=== PATIENT | female | born 1955 | race Caucasian/White ===

== ENCOUNTER 2017-04-02 07:27 | Inpatient (IN) | payer BC ==
[~2017-04-02] VITALS: Ht 162.6 cm; Wt 75.3 kg
[~2017-04-02 07:27] MED LIST: ATACAND32 MG PO; PHILLIPS' COLO1 EACH PO; PHILLIPS500 MG PO; PREVACID15 M1 PO
[2017-04-02] MEDS ORDERED: ROPIVACAINE 246.25 MG, EPINEPHRINE HCL 1:1000 0.5 MG, CLONIDINE HCL 0.08 MG, KETOROLAC ... INJ ONE ×5 (07:30)
[2017-04-02] MEDS ORDERED: GABAPENTIN 300 MG CAP ONE (07:31)
[2017-04-02] MEDS ORDERED: CELECOXIB 200 MG CAP ONE (07:31)
[2017-04-02] MEDS ORDERED: CEFAZOLIN SOD 2 GM/D5W 50ML 50 ML IV ONE (07:32)
[2017-04-02] MEDS ORDERED: DEXAMETHASONE SOD PHOS 10 MG/1 ML VIAL ONE (07:33)
[2017-04-02] MEDS ORDERED: BUPIVACAINE 7.5MG/ML /DEXTROSE 82.5MG/ML 2 ML AMP INJ ONE (08:08)
[2017-04-02] MEDS ORDERED: BACITRACIN 50,000 UNIT VIAL ONE (08:41)
[2017-04-02] MEDS ORDERED: TRANEXAMIC ACID 1,000 MG/10 ML ML ONE (08:41)
[2017-04-02] MEDS ORDERED: MUPIROCIN 2% OINT 22 GM TUBE ONE (08:41)
[2017-04-02] MEDS: SODIUM CHLORIDE 0.9% 1000ML 1,000 ML IV SCH ×2 (10:53→20:15)
[2017-04-02] MEDS ORDERED: DIPHENHYDRAMINE HCL INJ 50 MG/ML VIAL IM/IV PRN (11:00)
[2017-04-02] MEDS ORDERED: ONDANSETRON HCL INJ 2 MG/ML VIAL IV PRN (11:00)
[2017-04-02] MEDS ORDERED: DOCUSATE SODIUM 100 MG CAP PO PRN (11:00)
[2017-04-02] MEDS ORDERED: ZOLPIDEM TARTRATE 5 MG TAB PO PRN (11:00)
[2017-04-02] MEDS ORDERED: HYDROCODONE/APAP 5MG-325MG TAB PO PRN (11:00)
[2017-04-02] MEDS ORDERED: ACETAMINOPHEN 650 MG SUPP PR PRN (11:00)
[2017-04-02] MEDS ORDERED: PROMETHAZINE HCL (IM) 25 MG/ML VIAL INJ PRN (11:00)
[2017-04-02] MEDS ORDERED: HYDROCODONE/APAP 7.5MG-325MG 1 EA TAB PO PRN (11:00)
[2017-04-02] MEDS ORDERED: FENTANYL CITRATE/PF 100MCG/2 ML INJ ONE ×2 (11:13→13:03)
[2017-04-02] MEDS: ACETAMINOPHEN 1000 MG/100 ML IV SCH ×3 (12:00→23:22)
--- NOTE | 2017-04-02 12:06 | Diagnostic Imaging Report ---
PELVIS AP 1-2 VIEWS - 3 views HISTORY: Post right hip surgery. COMPARISON: 06/01/2016 FINDINGS: Limited by soft tissue attenuation. Status post right hip arthroplasty. Hardware is intact. No evidence of loosening or perihilar fracture. Surgical anabel overlying the lateral superior right thigh and minimal soft tissue emphysema. IMPRESSION: Postoperative changes of right hip arthroplasty. No acute findings. Signed by: Dr. Enrike Yoo MD on 04/02/2017 12:02 PM
[2017-04-02] MEDS: KETOROLAC TROMETHAMINE 30 MG/ML VIAL IV PRN ×2 (13:00→20:25)
[2017-04-02] MEDS ORDERED: MIDAZOLAM HCL 2 MG/2 ML VIAL ONE (13:03)
[2017-04-02] MEDS ORDERED: CEFAZOLIN SOD 1 GM/NS 50ML 50 ML IV SCH (14:00)
--- NOTE | 2017-04-02 14:05 | Operative Report ---
DATE OF PROCEDURE: April 02, 2017 LOW VOLTAGE TECHNICIAN: Tru Tineo PA-C The patient was brought to the operating room for induction of anesthesia. Throughout this case, my PA's assistance was necessary for retraction of soft tissue and positioning of the extremity. This allows for efficient and technically successful execution of the operation and is considered medically necessary. PREOPERATIVE DIAGNOSIS: Osteoarthritis, right hip. POSTOPERATIVE DIAGNOSIS: Osteoarthritis, right hip. PROCEDURE: Right total hip arthroplasty. INDICATIONS: The patient is a 61-year-old lady who has end-stage arthritis of her right hip. She has failed conservative management and would like to proceed with a right total hip replacement. The risks and benefits of the procedure have been discussed. She states she understands and wishes to proceed. DESCRIPTION OF PROCEDURE: The patient was brought to the operating room and placed under general anesthetic. She was positioned in the left lateral decubitus position. She received prophylactic antibiotics and tranexamic acid in the holding area. Her right hip was prepped and draped in a sterile manner. A preoperative time out was performed. A posterior approach was made to the right hip. Abundant subcutaneous adipose tissue was encountered. Hemostasis was obtained with electrocautery. A Charnley self-retaining retractor was placed. Care was taken to avoid injury to the sciatic nerve. The posterior capsule was carefully exposed and further hemostasis was obtained with electrocautery. The short external rotators and capsule were released. The hip was dislocated and an oscillating saw was used to resect the femoral head. Complete loss of the articular cartilage was noted on the superior dome of the femoral head. Acetabular retractors were carefully placed. The remnant of the labrum was excised. A 46-mm reamer was then used to establish the true floor of the acetabulum. The socket was then sequentially reamed up to 53 mm. Hemispherical bleeding cancellous bone was accomplished. A Qu[employer]omet osseo-TI socket was used. The 54-mm socket was impacted into place after thoroughly irrigating the acetabulum with a shower-tip pulsatile lavage. Excellent fixation was obtained. Fixation was augmented with a single 25 mm cancellous screw placed into the ilium. A highly cross-linked polyethylene liner with no elevation was then impacted into place. Care was taken to make sure that there was no evidence of soft tissue and interposition. Anterior and inferior marginal osteophytes were removed. A portion of a premixed pericapsular CHIQUITA injection was placed around the acetabular soft tissue. The socket was then packed with moistly soaked lap sponge. Attention was directed towards the proximal femur. A box cutting osteotome and taper pin reamer were used to establish entry to the femoral canal. The canal was broached with the Taperloc broaches. A #10 stem had good canal fill and stability. Trial reductions were performed. Nice sabianist of limb length and stability was accomplished. The trial implants were removed, and the hip was further irrigated with a shower-tip pulsatile lavage. The remainder of the pericapsular injection was placed. The implants were impacted into place in about 15 degrees of anteversion. A standard ceramic head with a standard offset was seated onto a clean and dry trunnion. Final reduction was performed. The posterior capsule was carefully repaired with interrupted #2 Ethibond. The piriformis was reattached using #2 Ethibond. The hip was further irrigated, and then the tensor fascia and gluteal fascia were closed with interrupted #2 Ethibond. The skin was closed with subcuticular Vicryl and anabel. She was returned to the supine position and extubated. She was transported to the recovery room in stable condition. Estimated blood loss was about 50 mL. At the end of the procedure, all needle and sponge counts were correct. Job#: [id number] CAIO
[2017-04-02] MEDS: CEFAZOLIN SOD 1 GM VIAL IV SCH ×2 (15:00→23:06)
[2017-04-02 16:01] VITALS: BP 134/65
[2017-04-02 16:53] VITALS: BP 134/65
[2017-04-02] MEDS: ASPIRIN 325 MG TAB PO SCH (17:36)
[2017-04-02] MEDS: CELECOXIB 100 MG CAP PO SCH (17:36)
[2017-04-02 19:56] VITALS: BP 108/56
[2017-04-02 20:00] VITALS: BP 108/56
[2017-04-02] MEDS ORDERED: PROMETHAZINE HCL (IM) 25 MG/ML VIAL IM PRN (20:30)
[2017-04-02 23:54] VITALS: BP 109/56
[2017-04-03 05:00] VITALS: BP 129/59
[2017-04-03] MEDS: ACETAMINOPHEN 1000 MG/100 ML IV SCH (05:39)
[2017-04-03] MEDS: SODIUM CHLORIDE 0.9% 1000ML 1,000 ML IV SCH (05:59)
[2017-04-03 06:39] LABS: HEMATOCRIT 34.3 % (34.2-44.1); HEMOGLOBIN 12.1 g/dL (12.0-16.0)
[2017-04-03] MEDS: CEFAZOLIN SOD 1 GM VIAL IV SCH (06:55)
[2017-04-03 08:04] VITALS: BP 119/59
[2017-04-03] MEDS ORDERED: ASPIRIN325 MG PO (08:27)
[2017-04-03] MEDS: ASPIRIN 325 MG TAB PO SCH (08:41)
[2017-04-03] MEDS: CELECOXIB 100 MG CAP PO SCH (08:41)
[2017-04-03 09:22] VITALS: BP 119/59
[2017-04-03] MEDS ORDERED: ACETAMINOPHEN 1000 MG/100 ML IV PRN (11:00)
[2017-04-03 12:00] VITALS: BP 121/66
[2017-04-03] MEDS ORDERED: NORCO 7.5-3251 EACH PO (13:19)
[2017-04-03] MEDS ORDERED: CELECOXIB 200 MG CAP PO SCH (17:00)
[2017-04-03] MEDS ORDERED: ACETAMINOPHEN 1000 MG/100 ML IV ONE (19:42)
[2017-04-03] MEDS ORDERED: DEXAMETHASONE SOD PHOS INJ 4 MG/ML VIAL ONE (19:42)
[2017-04-03] MEDS ORDERED: LIDOCAINE HCL 2% LOCAL INJ 5 ML SDV VIAL INJ ONE (19:42)
[2017-04-03] MEDS ORDERED: NEOSTIGMINE 5 MG/5ML SYR ONE (19:42)
[2017-04-03] MEDS ORDERED: EPHEDRINE SULFATE INJ 50 MG/10 ML SYR ONE (19:42)
[2017-04-03] MEDS ORDERED: SEVOFLURANE INHAL SOLN 250 ML PEN BTL ONE (19:42)
[2017-04-03] MEDS ORDERED: PROPOFOL IV EMULSION 10 MG/ML 20 ML VIAL ONE (19:42)
[2017-04-03] MEDS ORDERED: GLYCOPYRROLATE INJ 1MG/ 5 ML SYR ONE (19:42)
[2017-04-03] MEDS ORDERED: ROCURONIUM BROMIDE 10 MG/ML 5ML VIAL ONE (19:42)
== END 2017-04-03 15:05 | disposition home health service (06) | DRG 470 ==
LOC: OR 07:27 → MED/SURG 15:41 → UNDODISIN 18:24
PROVIDERS: ADMIT Specialist; ATTEND Specialist
PROC: 0SR9039 Replacement of Right Hip Joint with Ceramic Synthetic Substitute, Cemented, Open Approach (ICD-10-PCS; principal; 2017-04-02 09:30)
DX: M16.11 Unilateral primary osteoarthritis, right hip (principal); D64.9 Anemia, unspecified; K21.9 Gastro-esophageal reflux disease without esophagitis
CPT/HCPCS: 36415; 72170; 85014; 85018; 86850; 86900; 86920; C1713; J0171; J0690; J1100; J1885; J2001; J2250; J2795

== ENCOUNTER → 2017-09-11 | Day surgery (SDC) | payer BC ==
[~2017-09-11] MED LIST changes: +ASPIRIN325 MG PO; +BUPIVACAINE HCL 0.5% 10ML MPF VIAL INJ ONE; +FENTANYL CITRATE/PF 100MCG/2 ML INJ ONE; +IOPAMIDOL 200 MG/ML 20 ML VIAL IT ONE; +LIDOCAINE HCL 1% LOCAL INJ 20 ML VIAL ONE; +LIDOCAINE HCL 2% LOCAL INJ 5 ML SDV VIAL INJ ONE; +MIDAZOLAM HCL 2 MG/2 ML VIAL ONE; +NORCO 7.5-3251 EACH PO; +PROBIOTIC & AC1 EACH; +PROPOFOL IV EMULSION 10 MG/ML 20 ML VIAL ONE; +TRIAMCINOLONE ACET 40 MG/ML VIAL ONE
--- NOTE | 2017-09-11 10:54 | Operative Report ---
DATE OF PROCEDURE: September 11, 2017 GRANITE CHIP TERRAZZO FINISHER: Tru Tineo PA-C The patient was brought to the operating room for induction of anesthesia. Throughout this case, my PA's assistance was necessary for retraction of soft tissue and positioning of the extremity. This allows for efficient and technically successful execution of the operation and is considered medically necessary. 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 POSTOPERATIVE DIAGNOSIS: Osteoarthritis of the left hip and low back. PROCEDURE: Fluoroscopic-guided injection of the left hip. INDICATIONS: The patient is a 62-year-old lady who has arthritic changes in both her hip and low back. We plan on a fluoroscopic-guided injection to give her a sense of which area is generating the most pain. The risks and benefits were explained. She stated she understands and wished to proceed. DESCRIPTION OF PROCEDURE: The patient was brought to the procedure room and given a MAC anesthetic. Her left hip was prepped and draped in a sterile manner. A preoperative time out was performed. A C-arm image intensifier was used to assist in placing a spinal needle into the hip joint. Intra-articular positioning was confirmed with a small amount of radiopaque dye. A 10 mL mixture of 0.5% Marcaine and Solu-Medrol was then injected into the hip. The needle was retrieved and a Band-Aid was applied. She was transported to the recovery room in good condition. There was no blood loss and all needle and sponge counts were correct. Job#: [id number] KENDALL
== END | disposition home or self-care (01) ==
LOC: OR 05:56
PROVIDERS: ATTEND Specialist
DX: M16.12 Unilateral primary osteoarthritis, left hip (principal); M46.96 Unspecified inflammatory spondylopathy, lumbar region; M70.62 Trochanteric bursitis, left hip; Z96.641 Presence of right artificial hip joint; I10 Essential (primary) hypertension; K21.9 Gastro-esophageal reflux disease without esophagitis; F41.9 Anxiety disorder, unspecified; F17.210 Nicotine dependence, cigarettes, uncomplicated; Z01.810 Encounter for preprocedural cardiovascular examination; Z79.82 Long term (current) use of aspirin
CPT/HCPCS: 20610; 93005; J2001; J2250; J3301; Q9966; 76000

== ENCOUNTER 2017-12-03 05:07 | Inpatient (IN) | payer BC ==
[~2017-12-03] VITALS: Ht 160 cm; Wt 76.2 kg
[~2017-12-03 05:07] MED LIST changes: +ALPRAZOLAM0.5 MG PO; +ASPIR 8181 MG PO; +AZELASTINE137 MCG/0.; -BUPIVACAINE HCL 0.5% 10ML MPF VIAL INJ ONE; +CICLOPIROX15 GM TOP; -FENTANYL CITRATE/PF 100MCG/2 ML INJ ONE; -IOPAMIDOL 200 MG/ML 20 ML VIAL IT ONE; -LIDOCAINE HCL 1% LOCAL INJ 20 ML VIAL ONE; -LIDOCAINE HCL 2% LOCAL INJ 5 ML SDV VIAL INJ ONE; -MIDAZOLAM HCL 2 MG/2 ML VIAL ONE; -PROPOFOL IV EMULSION 10 MG/ML 20 ML VIAL ONE; -TRIAMCINOLONE ACET 40 MG/ML VIAL ONE
[2017-12-03] MEDS ORDERED: CELECOXIB 200 MG CAP ONE (05:14)
[2017-12-03] MEDS ORDERED: DEXAMETHASONE SOD PHOS 10 MG/1 ML VIAL ONE (05:14)
[2017-12-03] MEDS ORDERED: GABAPENTIN 300 MG CAP ONE (05:15)
[2017-12-03] MEDS ORDERED: CEFAZOLIN SOD 2 GM/D5W 50ML 50 ML IV ONE (05:15)
[2017-12-03] MEDS ORDERED: MUPIROCIN 2% OINT 22 GM TUBE ONE (06:25)
[2017-12-03] MEDS ORDERED: TRANEXAMIC ACID 1,000 MG/10 ML ML ONE (06:26)
[2017-12-03] MEDS ORDERED: BACITRACIN 50,000 UNIT VIAL ONE (06:26)
[2017-12-03] MEDS ORDERED: BUPIVACAINE 7.5MG/ML /DEXTROSE 82.5MG/ML 2 ML AMP INJ ONE (06:38)
[2017-12-03] MEDS ORDERED: ROPIVACAINE 246.25 MG, EPINEPHRINE HCL 1:1000 0.5 MG, CLONIDINE HCL 0.08 MG, KETOROLAC ... INJ ONE ×5 (07:30)
[2017-12-03] MEDS ORDERED: HYDROCODONE/APAP 5MG-325MG TAB PO PRN (08:30)
[2017-12-03] MEDS ORDERED: DOCUSATE SODIUM 100 MG CAP PO PRN (08:30)
[2017-12-03] MEDS ORDERED: KETOROLAC TROMETHAMINE 30 MG/ML VIAL IV PRN (08:30)
[2017-12-03] MEDS ORDERED: ACETAMINOPHEN 650 MG SUPP PR PRN (08:30)
[2017-12-03] MEDS ORDERED: PROMETHAZINE HCL (IM) 25 MG/ML VIAL INJ PRN (08:30)
[2017-12-03] MEDS ORDERED: DIPHENHYDRAMINE HCL INJ 50 MG/ML VIAL IM/IV PRN (08:30)
[2017-12-03] MEDS ORDERED: ZOLPIDEM TARTRATE 5 MG TAB PO PRN (08:30)
[2017-12-03] MEDS ORDERED: CELECOXIB 100 MG CAP PO SCH (09:00)
--- NOTE | 2017-12-03 09:00 | Diagnostic Imaging Report ---
PROCEDURE:X-RAY PELVIS, AP VIEW COMPARISON:Pelvic and right hip radiograph 04/02/2017. INDICATIONS:POST LEFT HIP SURGERY FINDINGS: See conclusion CONCLUSION: Post surgical changes of interval total left hip arthroplasty with intact and appropriately positioned acetabular cup and femoral stem components. Expected subcutaneous-interstitial gas and skin anabel. No periprosthetic displaced fracture. Stable appearance of prior right total hip arthroplasty. Dictated by: Jonathan Lugo M.D. on 12/03/2017 at 9:08 Electronically approved by: Jonathan Lugo M.D. on 12/03/2017 at 9:08
[2017-12-03] MEDS ORDERED: MEPERIDINE HCL INJ 50 MG/ML INJ ONE (09:06)
[2017-12-03 09:30] VITALS: BP 104/51
[2017-12-03] MEDS: ASPIRIN 325 MG TAB PO SCH ×2 (10:00→17:05)
--- NOTE | 2017-12-03 10:21 | Operative Report ---
DATE OF PROCEDURE: December 03, 2017 BEHAVIORAL INTERVENTIONIST: Tru Tineo PA-C The patient was brought to the operating room for induction of anesthesia. Throughout this case, my PA's assistance was necessary for retraction of soft tissue and positioning of the extremity. This allows for efficient and technically successful execution of the operation and is considered medically necessary. PREOPERATIVE DIAGNOSIS: Osteoarthritis, left hip. POSTOPERATIVE DIAGNOSIS: Osteoarthritis, left hip. PROCEDURE: Left total hip arthroplasty. INDICATIONS: The patient is a 62-year-old lady who has osteoarthritis of her left hip. She has failed conservative management and would like to proceed with a left total hip replacement. The risks and benefits of the procedure have been explained. She is familiar as she had a right hip replacement 8 months ago. She states she understands the plan of care and wishes to proceed. DESCRIPTION OF PROCEDURE: The patient was brought to the operating room and given a spinal anesthetic. She was positioned in the right lateral decubitus position. She received prophylactic antibiotic and tranexamic acid in the holding area. Her left hip was prepped and draped in a sterile manner. A preoperative time out was performed. A posterior approach was made to the left hip. Hemostasis was obtained with electrocautery. Care was taken to avoid injury to the sciatic nerve. A Charnley self-retraining retractor was placed. The short external rotators and posterior capsule were released. Further hemostasis was obtained with electrocautery. The hip was brought up into internal rotation and flexion. The hip was dislocated. An oscillating saw was used to resect the femoral head. Complete loss of articular cartilage was noted. Acetabular retractors were carefully placed. The labral remnants were excised. The true floor of the acetabulum was established with a 46-mm reamer. The socket was then sequentially reamed up to 53 mm. Bleeding hemispherical cancellous bone was accomplished. A Qu[employer] system was used throughout the case. A 54 mm outer diameter OsseoTi socket was seated. Good fixation was obtained. Fixation was augmented with a single 25-mm screw placed into the ilium. Again, good fixation of the screw was obtained. A highly crosslink polyethylene liner with a 36 mm inner diameter was then impacted into place. Care was taken to make sure that there was no evidence of soft-tissue interposition. The hip had been thoroughly irrigated a couple of times with a shower-tip pulsatile lavage during this portion of the case. A portion of a 100-mL premixed pericapsular injection was injected into the surrounding soft tissue. The socket was packed with moistly soaked lap sponge, and attention was directed towards the proximal femur. A box cutting osteotome and taper pin reamer were used to establish entry to the femoral canal. The [employer] Taperloc broaches were impacted. A size #10 stem had good canal fill and rotational stability for trial reductions. The hip was put through a full arc of motion and noted to have good stability. Jainism of limb length was felt to be appropriate. The trial implants were removed. The hip was further irrigated with a pulsatile lavage. The remainder of the pericapsular injection was placed into the surrounding soft tissue. The implants were seated, and a final reduction was performed. A standard ceramic 36-mm head was seated. The posterior capsule was carefully repaired with interrupted #2 Ethibond stitches. The proximal tensor fascia and gluteal fascia were closed with interrupted #2 Ethibond. Subcuticular Vicryl and anabel were used to close the skin. A sterile bandage was applied. The patient was extubated and transported to the recovery room in stable condition. Blood loss was about 75 mL. At the end of the procedure, all needle and sponge counts were correct. Job#: [id number]
[2017-12-03 10:45] VITALS: BP 104/51
[2017-12-03 12:00] VITALS: BP 119/60
[2017-12-03] MEDS: ACETAMINOPHEN 1000 MG/100 ML IV SCH ×3 (12:25→23:31)
[2017-12-03] MEDS: SODIUM CHLORIDE 0.9% 1000ML 1,000 ML IV SCH ×2 (12:25→21:28)
[2017-12-03] MEDS: CEFAZOLIN SOD 1 GM VIAL IV SCH ×2 (13:30→21:28)
[2017-12-03] MEDS ORDERED: CEFAZOLIN SOD 1 GM/D5W 50ML 50 ML IV SCH (14:00)
[2017-12-03] MEDS ORDERED: ALPRAZOLAM 0.5 MG TAB PO SCH (14:15)
[2017-12-03] MEDS ORDERED: ALPRAZOLAM 0.5 MG TAB PO PRN (14:15)
[2017-12-03] MEDS: ONDANSETRON HCL INJ 2 MG/ML VIAL IV PRN ×2 (14:37→18:28)
[2017-12-03] MEDS: HYDROCODONE/APAP 7.5MG-325MG 1 EA TAB PO PRN ×3 (14:37→23:44)
[2017-12-03 16:00] VITALS: BP 99/54
[2017-12-03] MEDS: CELECOXIB 200 MG CAP PO SCH (17:05)
[2017-12-03] MEDS: AZELASTINE HCL 137 MCG NASAL SPRAY NS SCH (17:05)
[2017-12-03] MEDS: CICLOPIROX OLAMINE 077% CREAM 15 GM TUBE TOP SCH (17:06)
[2017-12-03] MEDS ORDERED: FENTANYL CITRATE/PF 100MCG/2 ML INJ ONE (18:46)
[2017-12-03] MEDS ORDERED: MIDAZOLAM HCL 2 MG/2 ML VIAL ONE (18:46)
[2017-12-03] MEDS ORDERED: LIDOCAINE HCL 2% LOCAL INJ 5 ML SDV VIAL INJ ONE (18:57)
[2017-12-03] MEDS ORDERED: PROPOFOL IV EMULSION 10 MG/ML 20 ML VIAL ONE (18:57)
[2017-12-03 20:00] VITALS: BP 114/53
[2017-12-04] VITALS: BP 107/54
[2017-12-04] MEDS: ONDANSETRON HCL INJ 2 MG/ML VIAL IV PRN (00:30)
[2017-12-04 04:00] VITALS: BP 131/60
[2017-12-04] MEDS: HYDROCODONE/APAP 7.5MG-325MG 1 EA TAB PO PRN ×2 (05:04→09:12)
[2017-12-04 05:29] LABS: HEMATOCRIT 35.6 % (34.2-44.1); HEMOGLOBIN 12.3 g/dL (12.0-16.0)
[2017-12-04] MEDS: CEFAZOLIN SOD 1 GM VIAL IV SCH (05:47)
[2017-12-04] MEDS: ACETAMINOPHEN 1000 MG/100 ML IV SCH (05:47)
[2017-12-04] MEDS: SODIUM CHLORIDE 0.9% 1000ML 1,000 ML IV SCH (05:47)
[2017-12-04 07:29] VITALS: BP 135/64
[2017-12-04] MEDS ORDERED: PANTOPRAZOLE SOD 40 MG TABEC PO SCH (07:30)
[2017-12-04] MEDS: CELECOXIB 200 MG CAP PO SCH (08:00)
[2017-12-04] MEDS ORDERED: ACETAMINOPHEN 1000 MG/100 ML IV PRN (08:30)
[2017-12-04] MEDS: AZELASTINE HCL 137 MCG NASAL SPRAY NS SCH (09:00)
[2017-12-04] MEDS: CICLOPIROX OLAMINE 077% CREAM 15 GM TUBE TOP SCH (09:00)
[2017-12-04] MEDS: ASPIRIN 325 MG TAB PO SCH (09:11)
[2017-12-04 10:43] VITALS: BP 135/64
[2017-12-04] MEDS ORDERED: ASPIRIN325 MG PO (12:37)
== END 2017-12-04 13:22 | disposition home health service (06) | DRG 470 ==
LOC: OR 05:07 → PACU V 08:24 → MED/SURG 09:48
PROVIDERS: ADMIT Specialist; ATTEND Specialist
PROC: 0SRB0JZ Replacement of Left Hip Joint with Synthetic Substitute, Open Approach (ICD-10-PCS; principal; 2017-12-03 07:04)
DX: M16.12 Unilateral primary osteoarthritis, left hip (principal); Z96.641 Presence of right artificial hip joint; K21.9 Gastro-esophageal reflux disease without esophagitis; F41.9 Anxiety disorder, unspecified; I10 Essential (primary) hypertension; Z72.0 Tobacco use; Z83.3 Family history of diabetes mellitus; Z80.3 Family history of malignant neoplasm of breast; Z87.19 Personal history of other diseases of the digestive system; D64.9 Anemia, unspecified
CPT/HCPCS: 36415; 72170; 85014; 85018; 86850; 86900; 86920; 97139; C1713; J0171; J0690; J1100; J1885; J2001; J2175; J2250; J2405; J2795; J7030

== ENCOUNTER → 2018-02-08 | Outpatient (RCR) | payer BC | LOC: PT 01-16 13:33 | PROVIDERS: ATTEND Specialist | DX: Z96.642 Presence of left artificial hip joint (principal); Z47.1 Aftercare following joint replacement surgery; M25.552 Pain in left hip; M25.652 Stiffness of left hip, not elsewhere classified; M62.81 Muscle weakness (generalized) ==

== ENCOUNTER 2018-03-01 08:00 | Outpatient (RCR) | payer BC | END 2018-03-11 | LOC: PT 08:00 | PROVIDERS: ATTEND Specialist | DX: Z96.642 Presence of left artificial hip joint (principal); Z47.1 Aftercare following joint replacement surgery; M62.81 Muscle weakness (generalized); M25.552 Pain in left hip; M25.652 Stiffness of left hip, not elsewhere classified ==